=== PATIENT | male | born 1985 | race African-American/Black ===

== ENCOUNTER 2021-10-24 03:43 | Emergency (ER) | payer SELFPAY ==
[~2021-10-24] VITALS: Ht 172.7 cm; Wt 117.9 kg
[2021-10-24] MEDS ORDERED: TETANUS/DIPHTHERIA TOX ADULT 0.5 ML SYR IM STA (03:57)
[2021-10-24 04:54] VITALS: BP 141/89
== END 2021-10-24 04:55 | disposition home or self-care (01) ==
LOC: ER 03:48
DX: M25.571 Pain in right ankle and joints of right foot (principal); S80.811A Abrasion, right lower leg, initial encounter; R68.83 Chills (without fever); Z20.822 Contact with and (suspected) exposure to COVID-19
CPT/HCPCS: 73610; 90471; 90714; 99283; U0002

== ENCOUNTER 2022-10-21 09:32 | Emergency (ER) | payer SELFPAY ==
[~2022-10-21] VITALS: Ht 172.7 cm; Wt 117.9 kg
[2022-10-21 09:54] VITALS: O2SAT 100
[2022-10-21] MEDS ORDERED: AMOXICILLIN500 MG PO (10:16)
== END 2022-10-21 10:18 | disposition home or self-care (01) ==
LOC: ER 09:45
DX: K08.89 Other specified disorders of teeth and supporting structures (principal)
CPT/HCPCS: 99282